=== PATIENT | female | born 1995 | race Caucasian/White ===

== ENCOUNTER 2016-03-05 09:45 | Emergency (ER) | payer BC, OTHER ==
[2016-03-05 11:37] LABS: Hematocrit 39 % (35-47); Mean Corpuscular HGB Conc 33 g/dl (31-36); Mean Corpuscular Hemoglobin 31 pg (27-31); Mean Corpuscular Volume 94 fL (80-97); Mean Platelet Volume 9 um3 (7.4-10.4); Red Blood Count 4.12 10^6/ul (4.0-5.4); Red Cell Distribution Width 13 % (10.5-15); White Blood Count 4.3 10^3/ul (3.5-10.8)
[2016-03-05 11:58] LABS: BUN/Creatinine Ratio 7.5 (8-20); Calcium 9.2 mg/dL (8.6-10.3); EGFR African American 142.9 (>60); EGFR Non-African American 111.1 (>60); Globulin 2.7 g/dL (2-4); Total Bilirubin 0.5 mg/dL (0.2-1.0); Total Protein 6.7 g/dL (6.4-8.9)
--- NOTE | 2016-03-05 12:04 | ED ---
Seizure - HPI Summary HPI Summary: Patient is CARRIE after a witnessed seizure at home. She has a history of seizure and had her regular dose of 200mg reduced to 150mg this week. She also take clonipine 1mg daily for anxiety, and ran out of her medication yesterday and missed that dose. Her boyfriend said he saw her stand up from her computer and she fell to the ground, hitting her right knee and the back of her head on the floor. He called 911 and stayed with her. He saw her arms posturing, she was shaking, her eyes were wide open, she was drooling, her head was turned to the side and was not responding to him. After 5 minutes she appeared to improve and began to respond to him. By the time the ambulance arrived, he felt she was more appropriate. The patient denies neck pain, vomiting or SR. She is AO x 3 - History Of Current Complaint Chief Complaint: EDSeizure Time Seen by Provider: 03/05/16 10:32 Hx Obtained From: Patient, Family/Seating Captain Onset/Duration: Sudden Onset, Resolved Severity Of Seizure: Self-Limited Location Of Seizure: All Extremities Character: Generalized Clonic-Tonic Aggravating Factor(s): Meds Non-compliant Alleviating Factor(s): Spontaneous Resolution Associated Signs And Symptoms: Impaired Speech Related History: Medication Non-Compliant - Allergies/Home Medications Allergies/Adverse Reactions: Allergies Allergy/AdvReac Type Severity Reaction Status Date / Time Penicillins Allergy Intermediate Hives Verified 11/22/13 09:25 PMH/Surg Hx/FS Hx/Imm Hx Endocrine/Hematology History: Reports: Hx Thyroid Disease - HYPOTHYROIDISM Sensory History: Reports: Hx Contacts or Glasses Opthamlomology History: Reports: Hx Contacts or Glasses Neurological History: Reports: Hx Seizures Psychiatric History: Denies: Hx Eating Disorder, Hx of Violent Episodes Against Others Infectious Disease History: No Infectious Disease History: Denies: Traveled Outside the [place] in Last 30 Days - Family History Known Family History: Positive: None - Social History Occupation: Student Lives: With Family - Boyfriend Alcohol Use: Occasionally Substance Use Type: Reports: Prescribed Smoking Status (MU): Never Smoked Tobacco Review of Systems Negative: Fever, Chills Negative: Sore Throat Negative: Bruising Negative: Headache, Weakness, Paresthesia All Other Systems Reviewed And Are Negative: Yes Physical Exam Triage Information Reviewed: Yes Vital Signs On Initial Exam: Initial Vitals Temp Pulse Resp BP Pulse Ox 98.8 F 102 24 120/75 100 03/05/16 10:00 03/05/16 10:00 03/05/16 10:00 03/05/16 10:00 03/05/16 10:00 Vital Signs Reviewed: Yes Appearance: Positive: Well-Appearing, No Pain Distress, Thin Skin: Positive: Warm, Skin Color Reflects Adequate Perfusion, Dry, Soft Head/Face: Positive: Normal Head/Face Inspection Eyes: Positive: EOMI, NOAH, Conjunctiva Clear ENT: Positive: Hearing grossly normal, Pharynx normal, TMs normal Neck: Positive: Supple, Nontender Respiratory/Lung Sounds: Positive: Clear to Auscultation, Breath Sounds Present Cardiovascular: Positive: RRR Abdomen Description: Positive: Nontender, Soft Bowel Sounds: Positive: Present Musculoskeletal: Positive: Strength/ROM Intact. Negative: Edema Left, Edema Right Neurological: Positive: Sensory/Motor Intact, Alert, Oriented to Person Place, Time, CN Intact II-III, NV Bundle Intact Distally, Normal Gait Psychiatric: Positive: Affect/Mood Appropriate AVPU Assessment: Alert - Stephanie Coma Scale Coma Scale Total: 15 Diagnostics - Vital Signs Vital Signs Temp Pulse Resp BP Pulse Ox 03/05/16 10:00 98.8 F 102 24 120/75 100 - Laboratory Lab Results: Lab Results 03/05/16 Range/Units 11:18 WBC 4.3 (3.5-10.8) 10^3/ul RBC 4.12 (4.0-5.4) 10^6/ul Hgb 13.0 (12.0-16.0) g/dl Hct 39 (35-47) % MCV 94 (80-97) fL MCH 31 (27-31) pg MCHC 33 (31-36) g/dl RDW 13 (10.5-15) % Plt Count 232 (150-450) 10^3/ul MPV 9 (7.4-10.4) um3 Neut % (Auto) 75.7 (38-83) % Lymph % (Auto) 17.6 L (25-47) % [place] % (Auto) 5.4 (1-9) % Eos % (Auto) 0.9 (0-6) % Baso % (Auto) 0.4 (0-2) % Absolute Neuts (auto) 3.3 (1.5-7.7) 10^3/ul Absolute Lymphs (auto) 0.8 L (1.0-4.8) 10^3/ul Absolute Monos (auto) 0.2 (0-0.8) 10^3/ul Absolute Eos (auto) 0 (0-0.6) 10^3/ul Absolute Basos (auto) 0 (0-0.2) 10^3/ul Absolute Nucleated RBC 0 10^3/ul Nucleated RBC % 0.1 Result Diagrams: 03/05/16 11:18 03/05/16 11:18 Lab Statement: Any lab studies that have been ordered have been reviewed, and results considered in the medical decision making process. - EKG No standard instances Cardiac Rate: NL EKG Rhythm: Sinus Rhythm ST Segment: Normal Ectopy: None Course/Dx - Diagnoses Differential Diagnosis/HQI/PQRI: Positive: Alcohol Withdrawal, CVA, Drug Withdrawal, New Onset Seizure, Known Seizure Disorder Provider Diagnoses: Seizure - Physician Notifications Discussed Care Of Patient With: DARRON Mahoney Time Discussed With Above Provider: 12:15 Discharge - Discharge Plan Condition: Stable Disposition: HOME Patient Education Materials: Recurrent Seizures in Adults (ED) Referrals: Freedom Muniz [Nurse Practitioner] - Additional Instructions: Please call your PCP for an appointment STEVE for medical management. Resume taking 200mg of Lamictal and pick-up your clonidine and take as directed. Return to the emergency department if your symptoms worsen.
[2016-03-05 13:22] VITALS: BP 122/85
== END 2016-03-05 13:20 | disposition home or self-care (01) ==
LOC: ED 09:45
DX: R56.9 Unspecified convulsions (principal)
CPT/HCPCS: 36415; 80053; 85025; 93005; 99283

== ENCOUNTER 2016-11-12 07:23 | Inpatient (IN) | payer OTHER ==
[2016-11-12] MEDS ORDERED: Dinoprostone* 10 MG VAG.SUPP VAGINAL ONE (08:40)
[2016-11-12] MEDS ORDERED: Saline NASAL SPRAY 0.65%* BTL BOTH NARES PRN (14:53)
[2016-11-12 15:15] LABS: Hematocrit 36 % (35-47); Hemoglobin 11.8 g/dl (12.0-16.0); Mean Corpuscular HGB Conc 33 g/dl (31-36); Mean Corpuscular Hemoglobin 30 pg (27-31); Mean Corpuscular Volume 91 fL (80-97); Mean Platelet Volume 12 um3 (7.4-10.4); Red Blood Count 3.92 10^6/ul (4.0-5.4); Red Cell Distribution Width 14 % (10.5-15); White Blood Count 8.7 10^3/ul (3.5-10.8)
[2016-11-12] MEDS: Misoprostol TAB* 100 MCG PO SCH (22:17)
[2016-11-13] MEDS: Misoprostol TAB* 100 MCG PO SCH ×2 (02:25→06:24)
[2016-11-13] MEDS: Levothyroxine TAB* 25 MCG TAB PO SCH (07:29)
[2016-11-13] MEDS ORDERED: Oxytocin in LR* 20 UNITS/1,000 ML BAG IVPB SCH (11:00)
[2016-11-13] MEDS ORDERED: OBEPIDURAL* 250 ML ONE (17:21)
[2016-11-13] MEDS ORDERED: Sodium Citrate/Citric Acid* 15 ML UDC PO PRN (18:04)
[2016-11-13] MEDS ORDERED: Phenylephrine IV* 40 MCG/ML 10 ML SYRINGE IV PUSH PRN ×2 (18:04)
[2016-11-13] MEDS ORDERED: Famotidine TAB* 20 MG PO PRN (18:04)
[2016-11-13] MEDS ORDERED: EPHEDrine (Pressors)* 50 MG/ML VIAL IV PUSH PRN ×2 (18:04)
[2016-11-13] MEDS ORDERED: OBEPIDURAL* 250 ML EPIDURAL SCH (19:00)
[2016-11-14] MEDS ORDERED: Glycerin ADULT SUPP PR PRN (02:19)
[2016-11-14] MEDS ORDERED: Dibucaine 1% 28.35 GM TUBE PR PRN (02:19)
[2016-11-14] MEDS ORDERED: Witch Hazel PAD* JAR TOPICAL PRN (02:19)
[2016-11-14] MEDS ORDERED: Acetaminophen TAB* 325 MG PO PRN (02:19)
[2016-11-14] MEDS ORDERED: Misoprostol TAB* 200 MCG PR ONE (02:29)
[2016-11-14] MEDS ORDERED: Misoprostol TAB* 200 MCG ONE (02:40)
[2016-11-14] MEDS ORDERED: Oxytocin in LR* 20 UNITS/1,000 ML BAG IVPB SCH (03:00)
[2016-11-14] MEDS: Ibuprofen TAB* 600 MG PO PRN ×3 (04:49→19:31)
[2016-11-14] MEDS: Prenatal Vitamin TAB PO SCH ×2 (07:27→07:40)
[2016-11-14] MEDS: Docusate CAP* 100 MG PO SCH ×3 (07:40→20:21)
[2016-11-14] MEDS: Levothyroxine TAB* 25 MCG TAB PO SCH (07:40)
[2016-11-15] MEDS: Levothyroxine TAB* 25 MCG TAB PO SCH (06:32)
[2016-11-15] MEDS: Ibuprofen TAB* 600 MG PO PRN ×2 (08:51→15:21)
[2016-11-15] MEDS: Prenatal Vitamin TAB PO SCH (08:53)
[2016-11-15] MEDS: Docusate CAP* 100 MG PO SCH ×2 (08:53→15:12)
[2016-11-15] MEDS ORDERED: Ferrous Gluconate TAB* 324 MG TAB PO SCH (09:00)
[2016-11-15 09:30] LABS: Hematocrit 34 % (35-47); Hemoglobin 11.4 g/dl (12.0-16.0); Mean Corpuscular HGB Conc 34 g/dl (31-36); Mean Corpuscular Hemoglobin 31 pg (27-31); Mean Corpuscular Volume 91 fL (80-97); Mean Platelet Volume 11 um3 (7.4-10.4); Red Blood Count 3.69 10^6/ul (4.0-5.4); Red Cell Distribution Width 14 % (10.5-15)
[2016-11-15 09:31] LABS: Add Diff/Slide Review? Slide Review Added; Comments Flag Yes
[2016-11-15 10:21] LABS: Platelet Morphology Large
[2016-11-16] MEDS: Docusate CAP* 100 MG PO SCH ×3 (01:21→14:12)
[2016-11-16] MEDS: Simethicone TAB* 80 MG TAB.CHEW PO SCH (01:25)
[2016-11-16] MEDS: Misoprostol TAB* 100 MCG PO SCH ×2 (01:30→01:32)
[2016-11-16] MEDS: Levothyroxine TAB* 25 MCG TAB PO SCH (06:11)
[2016-11-16 07:51] VITALS: BP 126/68
[2016-11-16] MEDS: Prenatal Vitamin TAB PO SCH (10:58)
--- NOTE | 2016-11-16 12:30 | PTEDU ---
Patient Name: LORE YI LORE YI selected video: BBOB: Nurturing Your Gorgeous \T\Growing Baby by to vi ew on 11/16/2016 at 12:28:28 PM from [id number]
[2016-11-16] MEDS: Ibuprofen TAB* 600 MG PO PRN (14:11)
== END 2016-11-16 16:15 | disposition home or self-care (01) | DRG 775 ==
LOC: MCHOBOUT 07:23 → MCHOB 08:40
PROVIDERS: ADMIT Obstetrics & Gynecology; ATTEND Obstetrics & Gynecology
PROC: 10907ZC Drainage of Amniotic Fluid, Therapeutic from Products of Conception, Via Natural or Artificial Opening (ICD-10-PCS; principal; 2016-11-14)
PROC: 10E0XZZ Delivery of Products of Conception, External Approach (ICD-10-PCS; 2016-11-14)
PROC: 3E0P7VZ Introduction of Hormone into Female Reproductive, Via Natural or Artificial Opening (ICD-10-PCS; 2016-11-14)
PROC: 4A1HXCZ Monitoring of Products of Conception, Cardiac Rate, External Approach (ICD-10-PCS; 2016-11-14)
PROC: 10H07YZ Insertion of Other Device into Products of Conception, Via Natural or Artificial Opening (ICD-10-PCS; 2016-11-14)
PROC: 4A1H7CZ Monitoring of Products of Conception, Cardiac Rate, Via Natural or Artificial Opening (ICD-10-PCS; 2016-11-14)
DX: O36.5930 Maternal care for other known or suspected poor fetal growth, third trimester, not applicable or unspecified (principal); E03.9 Hypothyroidism, unspecified; O99.284 Endocrine, nutritional and metabolic diseases complicating childbirth; O69.81X0 Labor and delivery complicated by cord around neck, without compression, not applicable or unspecified; Z37.0 Single live birth; Z88.0 Allergy status to penicillin; Z3A.36 36 weeks gestation of pregnancy; Z91.5 Personal history of self-harm
CPT/HCPCS: 36415; 59200; 85025; 86850; 86900; 86901; A9270-GY; S0191